=== PATIENT | male | born 1985 | race African-American/Black ===

== ENCOUNTER 2016-09-19 15:41 | Emergency (ER) | payer OTHER ==
[2016-09-19 15:52] VITALS: BP 151/90; PULSE 63; TEMP 98; BMI 22.0
--- NOTE | 2016-09-19 16:30 | PDOC ---
History of Present Illness - General Chief Complaint: Abscess Boil Stated Complaint: ABSCESS IN LT AXILIA Time Seen by Provider: 09/19/16 16:04 History Source: Patient - History of Present Illness Timing/Duration: reports: other Past History - Past Medical History Allergies/Adverse Reactions: Allergies Allergy/AdvReac Type Severity Reaction Status Date / Time No Known Allergies Allergy Verified 09/19/16 15:49 Home Medications: Ambulatory Orders Clindamycin [Cleocin -] 300 mg PO Q6HPO #28 capsule 09/19/16 HIV: Yes Suicide Attempt (Hx): No - Immunization History Immunization Up to Date: No - Psycho/Social/Smoking Cessation Hx Suicidal Ideation: No Smoking Status: Yes Smoking History: Current every day smoker Number of Cigarettes Smoked Daily: 3 Information on smoking cessation initiated: No Review of Systems - Review of Systems Constitutional: No: Chills, Fever Integumentary: No: Erythema *Physical Exam - Vital Signs Last Vital Signs Temp Pulse Resp BP Pulse Ox 98.0 F 63 18 151/90 100 09/19/16 15:50 09/19/16 15:50 09/19/16 15:50 09/19/16 15:50 09/19/16 15:50 - Physical Exam General Appearance: Yes: Appropriately Dressed. No: Apparent Distress HEENT: positive: Normal Voice Neck: positive: Supple Respiratory/Chest: negative: Respiratory Distress Integumentary: positive: Dry, Warm, Other (~1cm induration to L axilla, + fluctuance, no overlying erythema) Neurologic: positive: Fully Oriented, Alert, Abnormal Cranial NS Procedures - Incision and Drainage I&D Site: Left: Axilla Anesthesia: 1% Lidocaine Volume(ml): 6 Blade Size: 11 Attempts: 1 (w/ minimal pus) Iodinated Packin/4 in Complications: none Dressing: Yes Medical Decision Making - Medical Decision Making 09/19/16 16:25 31 yo M, h/o HIV on meds but does not remember last CD4 or VL, here with pain and swelling to L axilla. Pt states for the past several months, swelling " comes and goes on its own" but for the past week has been persistent. Denies ever having to get an I&D. No f/c. See exam Abscess -I&D -wound cx -tetanus UTD -dc w/ abx and wound check in 2 days 09/19/16 16:58 09/19/16 16:59 *DC/Admit/Observation/Transfer Diagnosis at time of Disposition: Abscess - Discharge Dispostion Disposition: HOME Condition at time of disposition: Improved - Prescriptions Prescriptions: Clindamycin [Cleocin -] 300 mg PO Q6HPO #28 capsule - Referrals Referrals: STAFF,NOT ON [Primary Care Provider] - - Patient Instructions Printed Discharge Instructions: DI for Incision and Drainage of a Skin Abscess Additional Instructions: Take medication as directed and return to ED in 2 days for wound check
== END 2016-09-19 17:04 | disposition home or self-care (01) ==
LOC: JERFT 15:41
PROC: 0H9CXZZ Drainage of Left Upper Arm Skin, External Approach (ICD-10-PCS; principal; 2016-09-19)
DX: L02.412 Cutaneous abscess of left axilla (principal); Z21 Asymptomatic human immunodeficiency virus [HIV] infection status
CPT/HCPCS: 87070; 87186; 87205; 99281-25

== ENCOUNTER 2016-09-22 19:42 | Emergency (ER) | payer OTHER ==
[2016-09-22 19:52] VITALS: BP 128/72; PULSE 68; TEMP 98; BMI 22.0
--- NOTE | 2016-09-22 20:20 | PDOC ---
History of Present Illness - General Chief Complaint: Allergic Reaction Stated Complaint: REVISIT Time Seen by Provider: 09/22/16 19:57 History Source: Patient Exam Limitations: No Limitations - History of Present Illness Initial Comments: 09/22/16 20:09 31-year-old male presents the ED for evaluation of left axilla wound which had an I and D and packing placed on Friday. Patient states has been on clindamycin since but states has been having GI complaints including nausea with one episode of vomiting followed by 2 episodes of diarrhea. Patient denies fever, chills, headache inability to tolerate by mouth, decreased urine output. Timing/Duration: intermittent Severity: mild Associated Symptoms: reports: nausea/vomiting Past History - Past Medical History Allergies/Adverse Reactions: Allergies Allergy/AdvReac Type Severity Reaction Status Date / Time No Known Allergies Allergy Verified 09/22/16 19:49 Home Medications: Ambulatory Orders Clindamycin [Cleocin -] 300 mg PO Q6HPO #28 capsule 09/19/16 HIV: Yes Suicide Attempt (Hx): No - Immunization History Immunization Up to Date: No - Psycho/Social/Smoking Cessation Hx Suicidal Ideation: No Smoking Status: Yes Smoking History: Current every day smoker Number of Cigarettes Smoked Daily: 3 Information on smoking cessation initiated: Yes 'Breaking Loose' booklet given: 09/22/16 Hx Alcohol Use: No Drug/Substance Use Hx: No Patient Lives Alone: No Review of Systems - Review of Systems Able to Perform ROS?: Yes Constitutional: No: Symptoms Reported HEENTM: No: Symptoms Reported Respiratory: No: Symptoms reported Cardiac (ROS): No: Symptoms Reported ABD/GI: Yes: Diarrhea, Nausea, Vomiting : No: Symptoms Reported Musculoskeletal: No: Symptoms Reported Integumentary: No: Symptoms Reported Neurological: No: Symptoms reported Hematologic/Lymphatic: Yes: See HPI *Physical Exam - Vital Signs Last Vital Signs Temp Pulse Resp BP Pulse Ox 98 F 68 18 128/72 100 09/22/16 19:49 09/22/16 19:49 09/22/16 19:49 09/22/16 19:49 09/22/16 19:49 - Physical Exam General Appearance: Yes: Nourished, Appropriately Dressed. No: Apparent Distress Gastrointestinal/Abdominal: positive: Soft. negative: Tenderness Extremity: positive: Other (packing removed from left axillla. Surrounding skin intact) Integumentary: positive: Normal Color, Warm, Moist Neurologic: positive: Motor Strength 5/5 (ambulatory) Medical Decision Making - Medical Decision Making 09/22/16 20:20 Pt with GI complaints since being on Clindamycin. pt with H/o HIV. Pt's Cx reviewed which was + for staph areus and was not sensative to Clindamycin. Patient had sensitivity to ceftriaxone. Patient will be ordered for Keflex and discharged home to continue hot shower to the affected area and observe for infection. RX sent. *DC/Admit/Observation/Transfer Diagnosis at time of Disposition: Encounter for removal of abscess packing - Discharge Dispostion Disposition: HOME Condition at time of disposition: Good - Patient Instructions Printed Discharge Instructions: DI for Incision and Drainage of a Skin Abscess Additional Instructions: Take Keflex as prescribed until completed. Keep area clean and dry do not apply any topical to the affected area and continue with hot showers as discussed. Observe for any infection such as redness swelling or drainage.
== END 2016-09-22 20:29 | disposition home or self-care (01) ==
LOC: JERFT 19:42
DX: Z48.01 Encounter for change or removal of surgical wound dressing (principal)
CPT/HCPCS: 99281-25

== ENCOUNTER 2019-05-01 02:25 | Emergency (ER) | payer OTHER ==
[2019-05-01 02:47] VITALS: BMI 21.2
--- NOTE | 2019-05-01 03:28 | PDOC ---
Attending Attestation - Resident Resident Name: Cristo,Apollo - ED Attending Attestation I have performed the following: I have examined & evaluated the patient, The case was reviewed & discussed with the resident, I agree w/resident's findings & plan - HPI HPI: 05/01/19 06:22 Pt smoked weed and began acting strangely as per his best friend, who smoked with him, but didn't have the same bad reaction. Pt states that he is hearing voices and he is paranoid and he is crying because there was a truck parked outside his home, and he is sure that the men in the moving truck were after him, and he fears they will harm his mom who he lives with. - Physicial Exam PE: 05/01/19 06:24 Agree with resident exam. Pt is afebrile. Pt's mucous membranes are dry; Pt has normal heart and lungs. - Medical Decision Making 05/01/19 05:08 Pt with substance abuse related mood disorder. 05/01/19 06:36 Pt will require psych eval in the AM for clearance. 05/01/19 06:37 Labs are normal; K+ was repleted.
--- NOTE | 2019-05-01 03:29 | PDOC ---
History of Present Illness - General Chief Complaint: Substance Abuse Stated Complaint: CHEST PAIN Time Seen by Provider: 05/01/19 03:27 - History of Present Illness Initial Comments: 05/01/19 05:49 HPI: 33 y/o M HIV+ on genvoya brought in by a friend for acting off after substance abuse. Patient claimed he used meth and then smoked a cigarette but didnt know if it had marijuana in it. He reports feeling different and off; states he started yelling outloud and hearing things. 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 He felt very paranoid and anxious and started feeling palpitations. He denies any chest pain , SOB, abd pain, n/v, fever, chills, syncope, LOC. PMHx: as noted above ROS: as noted SHx: loose cigarettes use daily; no alcohol use; meth and MJ Allergies: NKDA ROS: GENERAL/CONSTITUTIONAL: No fever or chills. No weakness. HEAD, EYES, EARS, NOSE AND THROAT: No change in vision. No ear pain or discharge. No sore throat. CARDIOVASCULAR: No chest pain or shortness of breath RESPIRATORY: No cough, wheezing, or hemoptysis. GASTROINTESTINAL: No nausea, vomiting, diarrhea or constipation. GENITOURINARY: No dysuria, frequency, or change in urination. MUSCULOSKELETAL: No joint or muscle swelling or pain. No neck or back pain. SKIN: No rash NEUROLOGIC: No headache, vertigo, loss of consciousness, or change in strength/ sensation. ENDOCRINE: No increased thirst. No abnormal weight change HEMATOLOGIC/LYMPHATIC: No anemia, easy bleeding, or history of blood clots. ALLERGIC/IMMUNOLOGIC: No hives or skin allergy. PE: GENERAL: Awake, alert, anxious and paranoid HEAD: No signs of trauma, normocephalic, atraumatic EYES: EOMI, sclera anicteric, conjunctiva clear ENT: Auricles normal inspection, hearing grossly normal, nares patent, oropharynx clear without exudates. Moist mucosa NECK: Normal ROM, no lymphadenopathy LUNGS: No increased work of breathing, symmetrical chest rise, clear to auscultation bilaterally, no wheezes, crackles or rhonchi HEART: tachycardic and regular rhythm, normal S1 and S2, no murmurs, peripheral pulses 2+ and equal bilaterally. ABDOMEN: Soft, nondistended, nontender, normoactive bowel sounds. No guarding, no rebound. No masses EXTREMITIES: Normal inspection, Normal range of motion, no edema. No clubbing or cyanosis. NEUROLOGICAL: Cranial nerves II through XII grossly intact. Normal speech, normal gait, no focal sensorimotor deficits; patient shows evidence of delusions of persecution, speech is slow, sensation changes during exam SKIN: Warm, Dry, normal turgor, no rashes or lesions noted Past History - Past Medical History Allergies/Adverse Reactions: Allergies Allergy/AdvReac Type Severity Reaction Status Date / Time No Known Allergies Allergy Verified 05/01/19 02:47 Home Medications: Ambulatory Orders Genvoya Tablet 500 mg PO ASDIR 09/22/16 - Immunization History Immunization Up to Date: No - Suicide/Smoking/Psychosocial Hx Smoking Status: Yes Smoking History: Current some day smoker Number of Cigarettes Smoked Daily: 12 Information on smoking cessation initiated: No 'Breaking Loose' booklet given: 09/22/16 Hx Alcohol Use: No Drug/Substance Use Hx: No *Physical Exam - Vital Signs Last Vital Signs Temp Pulse Resp BP Pulse Ox 98.3 F 100 H 180/120 H 100 05/01/19 02:45 05/01/19 02:45 05/01/19 02:45 05/01/19 02:45 ED Treatment Course - LABORATORY CBC & Chemistry Diagram: 05/01/19 04:30 05/01/19 04:30 Medical Decision Making - Medical Decision Making 05/01/19 05:57 33 y/o M HIV+ on genvoya brought presenting with paranoia and palpitations following substance use. BP 180/120 initially with repeat 161/111 HR 90-100s O2 sats 100%. PE notable for delusions of persecution and agitation. No SI/HI -cbc, cmp, utoc, ekg -IVF, benadryl, ativan 05/01/19 05:59 agitation improved and patient currently sleeping Paged Dr Souza for consult for substance induced psychosis vs underlying psychosis; no answer but left a voicemail 05/01/19 06:55 BP improved and wnl 05/01/19 07:[address] Toledo to followup Psych consult and 1:1 obs; will require clearance by psych prior to DC *DC/Admit/Observation/Transfer Diagnosis at time of Disposition: Substance abuse - Referrals - Patient Instructions - Post Discharge Activity
[2019-05-01] MEDS ORDERED: LORazepam 2 MG/ML SDV VIAL ONE (04:25)
[2019-05-01] MEDS ORDERED: SODIUM CHLORIDE 1,000 ML IV STA (04:27)
[2019-05-01 04:55] LABS: BASO % 1.6 % (0-2.0); EOS % 4.2 % (0-4.5); HEMATOCRIT 43.8 % (35.4-49); HEMOGLOBIN 15.1 GM/dL (11.7-16.9); MCH 31.2 pg (25.7-33.7); MCHC 34.5 g/dl (32.0-35.9); MEAN CELL VOLUME 90.4 fl (80-96); MEAN PLT VOLUME 9.9 fl (7.5-11.1); NEUT % 48.2 % (42.8-82.8); PLATELET COUNT 194 K/MM3 (134-434); RBC 4.84 M/mm3 (4.00-5.60); WHITE BLOOD COUNT 4.7 K/mm3 (4.0-10.0)
[2019-05-01 05:06] LABS: ALBUMIN 4.6 g/dl (3.4-5.0); BLOOD UREA NITROGEN 18.4 mg/dL (7-18); CALCIUM 9.3 mg/dL (8.5-10.1); CREATININE 1.2 mg/dL (0.55-1.3); POTASSIUM 3.2 mmol/L (3.5-5.1); TOT PROT 7.6 g/dl (6.4-8.2)
[2019-05-01] MEDS ORDERED: POTASSIUM CHLORIDE TABS 20 MEQ TABLET.ER (FP) PO ONE ×2 (05:09→05:14)
[2019-05-01] MEDS ORDERED: MAGNESIUM SULF 50% (8.12 MEQ/2 ML-1 GM VIAL) IVPB ONE (05:09)
[2019-05-01] MEDS ORDERED: MAGNESIUM SULF 50% (8.12 MEQ/2 ML-1 GM VIAL) ONE (05:13)
--- NOTE | 2019-05-01 07:14 | PDOC ---
*Physical Exam - Vital Signs Last Vital Signs Temp Pulse Resp BP Pulse Ox 98.3 F 70 18 112/72 100 05/01/19 02:45 05/01/19 06:04 05/01/19 02:45 05/01/19 06:03 05/01/19 02:45 ED Treatment Course - LABORATORY CBC & Chemistry Diagram: 05/01/19 04:30 05/01/19 04:30 - ADDITIONAL ORDERS Additional order review: Laboratory Results 05/01/19 04:30 Sodium 137 Potassium 3.2 L Chloride 101 Carbon Dioxide 28 Anion Gap 8 BUN 18.4 H Creatinine 1.2 Est GFR (CKD-EPI)AfAm 91.53 Est GFR (CKD-EPI)NonAf 78.97 Random Glucose 108 H Calcium 9.3 Total Bilirubin 1.0 AST 34 ALT 26 Alkaline Phosphatase 90 Total Protein 7.6 Albumin 4.6 05/01/19 04:30 RBC 4.84 MCV 90.4 MCHC 34.5 RDW 13.0 MPV 9.9 Neutrophils % 48.2 Lymphocytes % 33.0 Monocytes % 13.0 H Eosinophils % 4.2 Basophils % 1.6 - Medications Given in the ED: ED Medications Discontinued Medications Generic Name Dose Route Start Last Admin Trade Name Freq PRN Reason Stop Dose Admin Diphenhydramine HCl 25 mg 05/01/19 04:27 05/01/19 04:50 Benadryl Injection - IVPUSH 05/01/19 04:28 Not Given ONCE ONE Sodium Chloride 1,000 mls @ 1,000 mls/hr 05/01/19 04:27 05/01/19 04:33 Normal Saline - IV 05/01/19 05:26 1,000 mls/hr ASDIR STA Administration Lorazepam 1 mg 05/01/19 04:27 05/01/19 04:33 Ativan Injection - IVPUSH 05/01/19 04:28 Not Given ONCE ONE Lorazepam 2 mg 05/01/19 04:31 05/01/19 04:33 Ativan Injection - IVPUSH 05/01/19 04:32 2 mg ONCE ONE Administration Magnesium Sulfate 2 gm 05/01/19 05:09 05/01/19 05:24 Magnesium Sulfate IVPB 05/01/19 05:10 2 gm ONCE ONE Administration Potassium Chloride 40 meq 05/01/19 05:09 05/01/19 06:28 K-Dur - PO 05/01/19 05:10 40 meq ONCE ONE Administration Medical Decision Making - Medical Decision Making 05/01/19 07:12 Sign out received from Dr. Lemons. 33 M with hx HIV p/w acute psychosis s/p smoking meth/marijuana, delusions of persecution. On 1:1. Given benadryl/ativan. Initially hypertensive/tachycardic, vitals now normal. Pending: [] Clearance by Psych (Dr. Best) [] UA --- UA notable for marijuana, meth, ecstasy --- Evaluated by Dr. Best, cleared by psychiatry for discharge. Medically cleared as well, plan for discharge home. *DC/Admit/Observation/Transfer Diagnosis at time of Disposition: Substance abuse - Discharge Dispostion Disposition: HOME Condition at time of disposition: Stable Decision to Admit order: No - Referrals - Patient Instructions Printed Discharge Instructions: Substance Use Disorder Additional Instructions: You were seen in the emergency department with psychosis after substance use. Your blood work returned normal, your urine was positive for meth, marijuana, ecstasy. You were evaluated by our telecommunications professional psychiatrist, and have been cleared to go home at this time. Please follow up with psychiatry and your primary care provider as soon as possible, within the next 2 days. Please return to the emergency department immediately if you develop any hallucinations, see or hear things that you believe other people cannot see or hear, or feel like you may hurt yourself or someone else. - Post Discharge Activity
[2019-05-01 07:22] VITALS: TEMP 98.7
[2019-05-01] MEDS ORDERED: SODIUM CHLORIDE 0.9% 500 ML INFUS.BAG IV ONE (08:11)
[2019-05-01 11:46] LABS: URINE APPEARANCE CLEAR; URINE BILIRUBIN NEGATIVE (NEGATIVE); URINE COLOR YELLOW; URINE GLUCOSE (UA) NEGATIVE (NEGATIVE); URINE KETONE 1+ (NEGATIVE); URINE LEUK ESTERASE NEGATIVE (NEGATIVE); URINE NITRITE NEGATIVE (NEGATIVE); URINE PROTEIN NEGATIVE (NEGATIVE)
[2019-05-01 12:32] LABS: COCAINE, UR NEGATIVE ng/ml (CUTOFF=300); METHADONE, UR NEGATIVE ng/ml (CUTOFF=300); OPIATES, URI NEGATIVE ng/ml (CUTOFF=300); PHENCYCLIDINE,URINE NEGATIVE ng/ml (CUTOFF=25); URINE BARBITURATES NEGATIVE ng/ml (CUTOFF=200); URINE BENZODIAZEPINES NEGATIVE ng/ml (CUTOFF=200)
[2019-05-01 12:44] LABS: URINE AMPHETAMINES POSITIVE ng/ml (CUTOFF=500)
--- NOTE | 2019-05-01 13:18 | CON.PSY ---
Psychiatry Consult Chief Complaint: 33 Year old male with no history of Psych illness came t o eR after ingesting MMA and began hallicinating, Patient was given Ativan and slept for a while and doing better now. 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 Fells better and able to comprehend well. Not hallucinating at this time. - Previous Psychiatric Treatment Outpatient: None Inpatient: None - Previous Substance Abuse Treatment Outpatient: None Inpatient: None - Allergies Allergies: Allergies Allergy/AdvReac Type Severity Reaction Status Date / Time No Known Allergies Allergy Verified 05/01/19 02:47 - Current Living Status Usual Living Arrangement: With Parent - Current Mental Status Evaluation Appearance: Well Groomed Attitude: Cooperative - Affect Affect: Constrictive Appropriateness: Appropriate to Content - Mood Mood: Euthymic - Speech/Language Expressive: Coherent - Psychomotor Activity Psychomotor Activity: Normal - Thought Process Thought Process: Intact - Thought Content Hallucinations: Absent Delusions: Absent - Self Perception Self Perception: No Impairment - Cognition Attention: Alert Orientation: Time Memory, Immediate Recall: Intact Memory, Short Term: 3/3 Memory, Remote with Promptin/3 - Concentration Serial Sevens Intact: Yes Simple Calculations Intact: Yes - Abstraction Proverb Interpretation: Intact Judgement: Minimally Impaired - Insight Insight: Intact - Impulse Control Impulse Control: Minimally Impaired - Suicidal Ideation Suicidal Ideation: No - Homicidal Ideation Homicidal Ideation: No Assessment/Plan 1) D/C 1:1. 2) discharge home when medically clear. 3) No Psych follow up needed.
[2019-05-01 13:52] VITALS: BP 128/84; PULSE 72
--- NOTE | 2019-05-01 14:59 | EKG ---
Test Reason : Blood Pressure : / mmHG Vent. Rate : 079 BPM Atrial Rate : 079 BPM P-R Int : 140 ms QRS Dur : 090 ms QT Int : 414 ms P-R-T Axes : 066 048 046 degrees QTc Int : 474 ms NORMAL SINUS RHYTHM WITH SINUS ARRHYTHMIA LEFT VENTRICULAR HYPERTROPHY ABNORMAL ECG Confirmed by MD JAROD, HELENA ([id number]) on 05/01/2019 2:58:54 PM Referred By: Confirmed By:HELENA OLIVERA MD
== END 2019-05-01 13:52 | disposition home or self-care (01) ==
LOC: JER 02:25
PROC: 3E0337Z Introduction of Electrolytic and Water Balance Substance into Peripheral Vein, Percutaneous Approach (ICD-10-PCS; principal; 2019-05-01)
PROC: 3E033NZ Introduction of Analgesics, Hypnotics, Sedatives into Peripheral Vein, Percutaneous Approach (ICD-10-PCS; 2019-05-01)
DX: F15.950 Other stimulant use, unspecified with stimulant-induced psychotic disorder with delusions (principal); F12.950 Cannabis use, unspecified with psychotic disorder with delusions; E87.6 Hypokalemia; Z21 Asymptomatic human immunodeficiency virus [HIV] infection status
CPT/HCPCS: 36415; 80053; 80307; 81003; 84443; 85025; 93005; 93010; 96361; 96374; 99284-25; J7030

== ENCOUNTER 2019-07-25 16:59 | Emergency (ER) | payer OTHER ==
[2019-07-25 17:05] VITALS: BP 119/78; PULSE 80; TEMP 98; BMI 21.2
[2019-07-25] MEDS ORDERED: PENICILLIN G BENZATHINE 2,400,000 UNIT/4 ML PFS IM ONE (17:42)
[2019-07-25] MEDS ORDERED: AZITHROMYCIN 250 MG TABLET PO ONE (17:43)
[2019-07-25] MEDS ORDERED: PENICILLIN G BENZATHINE 1,200,000 UNIT/2 ML PFS IM ONE (17:45)
[2019-07-25] MEDS ORDERED: AZITHROMYCIN 250 MG TABLET ONE (17:49)
[2019-07-25] MEDS ORDERED: cefTRIAXone SODIUM 1 GM VIAL ONE (17:50)
--- NOTE | 2019-07-25 17:54 | PDOC ---
History of Present Illness - General Chief Complaint: SIRS, Suspected/Possible Stated Complaint: LEFT FOOT PAIN Time Seen by Provider: 07/25/19 17:14 - History of Present Illness Initial Comments: 07/25/19 17:47 Mr. Sagastume is a 34yo man with a pmhx of HIV on genvoya who presents to the ED because he was recently diagnosed with syphilis and needs treatment. 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 He tested positive for syphillis but did not receive treatment at the time because he also suffers from anxiety and it was too overwhelming for him at the time. He was supposed to follow up at the clinic later in the week, but lives in [place] and is presenting here because it's closer. On ROS he denies having any discharge, itching rash, skin changes, sores, CP or SOB. Past History - Past Medical History Allergies/Adverse Reactions: Allergies Allergy/AdvReac Type Severity Reaction Status Date / Time No Known Allergies Allergy Verified 07/25/19 17:05 Home Medications: Ambulatory Orders Genvoya Tablet 500 mg PO ASDIR 09/22/16 COPD: No - Immunization History Immunization Up to Date: No - Psycho Social/Smoking Cessation Hx Smoking Status: Yes Smoking History: Current every day smoker Number of Cigarettes Smoked Daily: 12 Information on smoking cessation initiated: No 'Breaking Loose' booklet given: 09/22/16 Hx Alcohol Use: No Drug/Substance Use Hx: No Review of Systems - Review of Systems Able to Perform ROS?: Yes Is the patient limited Slovenian proficient: No Constitutional: No: Chills, Fever, Loss of Appetite, Malaise HEENTM: No: Eye Pain, Ear Pain, Nose Pain, Throat Pain Respiratory: No: Cough, Shortness of Breath Cardiac (ROS): No: Chest Pain, Lightheadedness, Palpitations ABD/GI: No: Abdominal Distended, Abd. Pain w/ defecation, Constipated, Diarrhea , Nausea, Vomiting, Abdominal cramping : No: Burning, Dysuria, Discharge Musculoskeletal: No: Back Pain, Joint Pain, Joint Swelling Integumentary: No: Bruising, Change in Color, Pruritus, Rash Neurological: No: Headache, Numbness, Paresthesia, Tingling Psychiatric: Yes: Anxiety Endocrine: No: Excessive Sweating, Flushing, Intolerance to Cold, Intolerance to Heat All Other Systems: Reviewed and Negative *Physical Exam - Vital Signs Last Vital Signs Temp Pulse Resp BP Pulse Ox 98 F 80 18 119/78 99 07/25/19 17:02 07/25/19 17:02 07/25/19 17:02 07/25/19 17:02 07/25/19 17:02 - Physical Exam General Appearance: Yes: Nourished, Appropriately Dressed. No: Apparent Distress HEENT: positive: GIANLUCA, Normal ENT Inspection, Normal Voice, Pharynx Normal Neck: positive: Trachea midline, Supple. negative: Tender Respiratory/Chest: positive: Lungs Clear, Normal Breath Sounds. negative: Respiratory Distress, Accessory Muscle Use, Crackles, Rales, Wheezing Cardiovascular: positive: Regular Rhythm, Regular Rate, S1, S2. negative: Murmur Gastrointestinal/Abdominal: positive: Normal Bowel Sounds, Soft. negative: Tender, Organomegaly Male Genitalia: positive: normal genitalia, other (no lymphadenopathy, visible sores, or discharge) Musculoskeletal: positive: Normal Inspection. 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 Sagastume is a 34yo man with a pmhx of HIV on genvoya who presents to the ED because he was recently diagnosed with syphilis and needs treatment. Will send - VDRL for titers Will administer: - Azithromycin 500 PO - Rocephin 250mg IM - Penicillin G IM Discharge - Discharge Information Problems reviewed: Yes Clinical Impression/Diagnosis: Acquired syphilis Condition: Stable Disposition: HOME - Admission No - Follow up/Referral - Patient Discharge Instructions Additional Instructions: You were in the hospital to receive treatment for your recently diagnosed syphilis. We did a syphilis titer and administered a penicillin shot. Please return to the emergency department if you have a rash, or experience neurologic symptoms like numbness/ tingling in your hands or feet or have changes in your vision. Please make sure you follow up with your primary care doctor for repeat titers to be sure your syphilis was appropriately treated. If you are interested in transferring your HIV care to a local doctor in [place] , please reach out to the [facility] at [address] [place] [address] ([phone]) - Post Discharge Activity Work/Back to School Note: Back to Work
--- NOTE | 2019-07-26 02:08 | PDOC ---
Documentation entered by Cici Warren SCRIBE, acting as scribe for Nargis Sanford MD. Nargis Sanford MD: This documentation has been prepared by the Briana loco Nirvannie, SCRIBE, under my direction and personally reviewed by me in its entirety. I confirm that the documentation accurately reflects all work, treatment, procedures, and medical decision making performed by me. Attending Attestation - Resident Resident Name: Samina García - ED Attending Attestation I have performed the following: I have examined & evaluated the patient, The case was reviewed & discussed with the resident, I agree w/resident's findings & plan - HPI HPI: 07/25/19 18:07 The patient is a 34 year old male, with a significant past medical history of HIV and methadone addiction, who presents to the emergency department with, Syphilis. As per patient, he follows at a LGBTQ clinic in [place] and was found to be Syphilis Positive on blood work. Patient was unable to receive the treatment secondary to an anxiety attack prompting his arrival to the ED. He denies any abnormal penile discharge or lesions. Allergies: NKDA - Physicial Exam PE: 07/26/19 02:[address] García 's physical exam 07/26/19 02:09 - Medical Decision Making 07/26/19 02:09 this pt came to obtain treatment for syphilis and he received his antibiotics
[2019-07-26 09:10] LABS: RPR REACTIVE 1:16 (NONREACTIVE)
[2019-07-26 12:21] LABS: TREPONEMA ANTIBODY REACTIVE (NONREACTIVE)
== END 2019-07-25 18:20 | disposition home or self-care (01) ==
LOC: JER 16:59
DX: A53.9 Syphilis, unspecified (principal); F17.210 Nicotine dependence, cigarettes, uncomplicated
CPT/HCPCS: 36415; 86593; 86780; 99281-25

== ENCOUNTER 2020-05-27 14:37 | Emergency (ER) | payer OTHER ==
[2020-05-27 14:49] VITALS: BP 113/69; PULSE 98; TEMP 98; BMI 22.6
--- OUTSIDE RECORDS SUMMARY | 2020-05-27 14:51 | XMS ---
:1985 Author Organization [facility] Care Team Providers Name Role Phone Moo Vallejo DO Unavailable Unavailable Re-disclosure Warning The records that you are about to access may contain information from federally- assisted alcohol or drug abuse programs. If such information is present, then the following federally mandated warning applies: This information has been disclosed to you from records protected by federal confidentiality rules (42 CFR part 2). The federal rules prohibit you from making any further disclosure of this information unless further disclosure is expressly permitted by the written consent of the person to whom it pertains or as otherwise permitted by 42 CFR part 2. A general authorization for the release of medical or other information is NOT sufficient for this purpose. The Federal rules restrict any use of the information to criminally investigate or prosecute any alcohol or drug abuse patient.The records that you are about to access may contain highly sensitive health information, the redisclosure of which is protected by Article 27-F of the [facility] Public Health law. If you continue you may haveaccess to information: Regarding HIV / AIDS; Provided by facilities licensed or operated by the [facility] Office of Mental Health; or Provided by the [facility] Office for People With Developmental Disabilities. If such information is present, then the following [facility] mandated warning applies: This information has been disclosed to you from confidential records which are protected by state law. State law prohibits you from making any further disclosure of this information without the specific written consent of the person to whom it pertains, or as otherwise permitted by law. Any unauthorized further disclosure in violation of state law may result in a fine or fci sentence or both. A general authorization for the release of medical or other information is NOT sufficient authorization for further disclosure. Encounters Encounter Providers Location Date Indications Data Source(s ) Emergency Attender: Moo 01/20/2019 HUMAN BITE AND VICTORIA K [place] Colantoni DO 08:38:00 PM [facility]UR[facility]AT [facility] EDT - 01/20/2019 09:04:00 PM EDT HUMAN BITE AND BACK INJURY (AT WORK) Patient discharged. Insurance Providers Payer name Policy type Policy ID Covered Covered libertarian's Policy P piper / Coverage libertarian ID relationship to [facility] ormation type torres SELF PAY SP INSURANCE [facility] [id number] [place] [id number] PLANS HIP MEDICAID [id number] SP [id number] PT [id number] [facility] S[facility] [id number] PT [id number] INSURANCE [facility]
[2020-05-27] MEDS ORDERED: ceFAZolin SODIUM 1 GM VIAL IM ONE (15:31)
[2020-05-27] MEDS ORDERED: AZITHROMYCIN 500 MG TABLET PO ONE (15:31)
[2020-05-27] MEDS ORDERED: AZITHROMYCIN 250 MG TABLET ONE (15:36)
[2020-05-27] MEDS ORDERED: LIDOCAINE HCL 1%, 10 MG/ML (20ML VIAL) ONE (15:36)
--- NOTE | 2020-05-27 15:48 | PDOC ---
History of Present Illness - General Chief Complaint: Rash Stated Complaint: ALLERGIC REACTION Time Seen by Provider: 05/27/20 14:52 History Source: Patient Exam Limitations: No Limitations - History of Present Illness Initial Comments: 05/27/20 15:39 Patient is a 34-year-old male with a history of HIV, undetectable viral load, CD4 roughly 400, who presents to the ED with complaint of an abscess to his left buttocks. The patient states that on 04/14/2020 he was treated with doxycycline for previous abscess which was subsequently drained by his primary doctor. He was again treated on 04/27/2020 he was treated with doxycycline for a positive chlamydia test but for only 7 days. Both antibiotic cycles were 7 days long which was confirmed with [facility] [address]. The patient states that he was concerned he was not treated properly for chlamydia and would like to get treated for that today. He denies any symptoms at all for chlamydia. The patient also states that he believes his abscess needs to be drained and is causing him increased pain. He has been squeezing it at home without any drainage. He got into the hot tub this morning as a warm soak. He denies any f sandrita or chills. Past History - Medical History Allergies/Adverse Reactions: Allergies Allergy/AdvReac Type Severity Reaction Status Date / Time No Known Allergies Allergy Verified 05/27/20 14:47 Home Medications: Ambulatory Orders Genvoya Tablet 500 mg PO ASDIR 09/22/16 Sulfamethoxazole/Trimethoprim [Bactrim Ds -] 1 tab PO BID #14 tablet 05/27/20 COPD: No - Immunization History Immunization Up to Date: No - Psycho-Social/Smoking History Smoking Status: Yes Smoking History: Current every day smoker Number of Cigarettes Smoked Daily: 6 Information on smoking cessation initiated: No 'Breaking Loose' booklet given: 09/22/16 - Substance Abuse Hx (Audit-C & DAST Scrn) How often the patient has a drink containing alcohol: Monthly or less Score: In Men: 4 or > Positive; In Women: 3 or > Positive: 1 Screen Result (Pos requires Nsg. Audit-10AR): Negative In the last yr the pt used illegal drug/Rx for NonMed reason: No Score: Yes response is considered Positive: 0 Screen Result (Positive result requires Nsg. DAST-10): Negative Review of Systems - Review of Systems Comments:: 05/27/20 15:43 - Review of Systems Able to Perform ROS?: Yes Constitutional: No: Fever, Chills, Loss of Appetite, Night Sweats, Weakness HEENTM: No: Eye Pain, Vision changes, Ear Pain, Throat Pain, Throat Swelling, Mouth Pain, Difficulty Swallowing Respiratory: No: Cough, Shortness of Breath, Wheezing, Sputum Production Cardiac (ROS): No: Chest Pain, Chest Tightness, Palpitations, Irregular Heart Beat, Edema ABD/GI: No: Nausea, Vomiting, Abdominal Pain, Diarrhea : No Dysuria, No Hematuria, No Frequency, No Urgency, No Penile Discharge/Pain; positive: Concern for not being completely treated for chlamydia. Musculoskeletal: No: Muscle Pain, Back Pain, Joint Pain, Muscle Weakness, Neck Pain Integumentary: No: Lesions, Rash; positive: Left buttock abscess Neurological: No: Headache, Numbness, Tingling, Weakness, Speech Difficulties *Physical Exam - Vital Signs Last Vital Signs Temp Pulse Resp BP Pulse Ox 98.0 F 98 H 18 113/69 99 05/27/20 14:47 05/27/20 14:47 05/27/20 14:47 05/27/20 14:47 05/27/20 14:47 - Physical Exam 05/27/20 15:43 - Physical Exam General Appearance: Nourished, Appropriately Dressed, No Distress HEENT: EOMI, Normal Voice, Hearing Grossly Normal Neck: Supple, No Lymphadenopathy (R), No Lymphadenopathy (L), No Rigidity, No Decreased range of motion Respiratory/Chest: Lungs Clear, Normal Breath Sounds. No Respiratory Distress, No Accessory Muscle Use Cardiovascular: Regular Rhythm, Regular Rate, S1, S2 Musculoskeletal: Normal Inspection. No Decreased Range of Motion Extremity: Normal Capillary Refill, Normal Inspection Integumentary: Normal Color, Dry. No Rash; left medial buttock abscess appreciated with induration but without fluctuance. No surrounding erythema. No crepitus. Moderate tenderness to palpation. No surrounding warmth to touch. No active drainage. 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 He is also concerned that he was not fully treated for chlamydia despite being asymptomatic. Plan: -Ceftriaxone IM and azithromycin p.o. x1 ordered in the ED - exam deferred as per patient request -Bactrim to be sent to the patient's pharmacy for his abscess -He has been made aware that the abscess is not ready for I&D at this point and he must have a wound check in 2 days either with his primary doctor or in the emergency department. -He understands and agrees this treatment plan and he is stable for discharge Discharge - Discharge Information Problems reviewed: Yes Clinical Impression/Diagnosis: Left buttock abscess, Exposure to chlamydia Condition: Stable Disposition: HOME - Additional Discharge Information Prescriptions: Sulfamethoxazole/Trimethoprim [Bactrim Ds -] 1 tab PO BID #14 tablet - Follow up/Referral - Patient Discharge Instructions Patient Printed Discharge Instructions: DI for Skin Abscess Additional Instructions: Apply warm compresses to the left buttock to help the abscess drain. Take the antibiotics as prescribed and complete the entire course. Be sure to follow-up with your primary doctor or in the emergency department to have the abscess rechecked and possibly drained. You have been completely treated for chlamydia in the emergency department today. You should avoid any sexual activity for 1 to 2 weeks to allow the possible chlamydial infection to resolve. Return to the emergency department for high fevers, shaking chills, increased pain, or any other worsening symptoms - Post Discharge Activity
== END 2020-05-27 16:46 | disposition home or self-care (01) ==
LOC: JERFT 14:37 → JER 14:37 → JERFT 16:46
DX: L02.31 Cutaneous abscess of buttock (principal); Z20.2 Contact with and (suspected) exposure to infections with a predominantly sexual mode of transmission
CPT/HCPCS: 99284-25